=== PATIENT | male | born 1970 | race Two or more races ===

== ENCOUNTER 2019-07-27 00:43 | Emergency (ER) | payer OTHER ==
[~2019-07-27] VITALS: Ht 172.7 cm; Wt 81.6 kg
[2019-07-27 02:42] LABS: Basophils # (auto) 0.2 uL; Basophils % (auto) 2.7 % (0.0-2.0); Eosinophils # (auto) 0.3 uL; Eosinophils % (auto) 4.5 % (0.0-7.0); Hematocrit 44.1 % (41.0-53.0); Hemoglobin 15.2 g/dL (13.5-17.5); Lymphocytes # (auto) 1.8 uL; Mean Corpuscular Hemoglobin 31.5 pg (28.0-32.0); Mean Corpuscular Hgb Conc. 34.6 g/dL (32.0-36.0); Monocytes # (auto) 0.5 uL; Monocytes % (auto) 6.8 % (0.0-12.0); Neutrophils # (auto) 4.2 uL; Nucleated Red Blood Cells % 0.1 %; Platelet Count (auto) 238 10^3/uL (140-450); Red Blood Cells 4.85 10^6/uL (4.5-5.90); Red Cell Distribution Width 13.3 % (11.8-14.3); White Blood Cell 7.1 10^3/uL (4.4-10.8)
[2019-07-27 02:57] LABS: INR 1.01 (0.9-1.15); Partial Thromboplastin Time 25.3 sec (23.64-32.05)
[2019-07-27 03:06] LABS: Blood Urea Nitrogen 13 mg/dL (7-18); Calcium 8.9 mg/dL (8.5-10.1); Carbon Dioxide 25 mmol/L (21-32); Glucose 96 mg/dL (74-106)
[2019-07-27 03:08] LABS: Alanine Aminotransferase 38 U/L (16-61); Aspartate Aminotransferase 18 U/L (15-37); BUN/Creatinine Ratio 14.8; GFR African American 118 mL/min; GFR Non-African American 98 mL/min
[2019-07-27 03:13] LABS: Alkaline Phosphatase 66 U/L (45-117); Bilirubin, Total 0.6 mg/dL (0.2-1.0); Total Protein 7.5 g/dL (6.4-8.2)
[2019-07-27 03:18] LABS: Anion Gap 9 (5-15); Chloride 108 mmol/L (98-107); Potassium 3.8 mmol/L (3.5-5.1); Sodium 142 mmol/L (136-145)
[2019-07-27 05:30] VITALS: BP 176/105
[2019-07-27 06:04] LABS: Urine WBC None Seen /hpf (0 - 3)
[2019-07-27 06:14] LABS: Urine Bacteria NONE SEEN /hpf (None Seen); Urine Blood Negative /uL (Negative)
[2019-07-27] MEDS ORDERED: cloNIDine HCL 0.1 MG TAB PO ONE (07:00)
== END 2019-07-27 10:08 | disposition home or self-care (01) ==
LOC: EDBD 00:43 → ER 00:50 → EEVIPCON 00:50 → ER 10:08
DX: R07.9 Chest pain, unspecified (principal); I20.9 Angina pectoris, unspecified; K21.9 Gastro-esophageal reflux disease without esophagitis; I16.0 Hypertensive urgency; I10 Essential (primary) hypertension; R51 Headache
CPT/HCPCS: 36415; 70450; 71045; 80053; 81001; 83880; 84484; 85025; 85379; 85610; 85730; 93005